=== PATIENT | female | born 1945 | race Caucasian/White ===

== ENCOUNTER 2024-12-09 17:40 | Inpatient (IN) ==
[2024-12-09] MEDS ORDERED: STAT IV Infusion **Titration per Protocol STA (21:17)
[2024-12-09] MEDS ORDERED: PHARMACY GLYCEMIC MGMT CONSULT PRN (21:17)
[2024-12-09] MEDS ORDERED: Patient's HEIGHT &/or WEIGHT Needed STA (21:24)
[2024-12-09] MEDS ORDERED: CARBOHYDRATES FOR HYPOGLYCEMIA PO PRN (21:30)
[2024-12-09] MEDS ORDERED: GLUCOSE 10 TAB/TUBE PO PRN (21:30)
[2024-12-09] MEDS ORDERED: GLUCAGON FOR INJ 1 MG VIAL SQ PRN (21:30)
[2024-12-09] MEDS ORDERED: DEXTROSE 50% 50 ML SYRINGE IV PRN (21:30)
[2024-12-09] MEDS ORDERED: GLUCOSE 40% GEL 15 GM TUBE PO PRN (21:30)
[2024-12-09] MEDS ORDERED: 0.2 MICRON FILTER SET 1 EACH IV ONE (21:37)
--- NOTE | 2024-12-09 21:45 | History & Physical Report ---
Date of Service December 09, 2024 Assessment & Plan (1) DKA (diabetic ketoacidoses): Plan: Assessment and plan below following review of patient history/pertinent normal/abnormal diagnostic test results. Hyperglycemic crisis Suboptimal control as of hemoglobin A1c of 8.7 drawn at [facility] New onset anemia secondary to GI bleed UGIB/LGIB combo History of Mora's esophagus/GERD Rule out C. difficile given recent antibiotic Rx for UTI New onset atrial flutter secondary to illness, patient currently NSR post IV amiodarone infusion initiation at [facility] Troponin elevation secondary to illness in the setting of kidney dysfunction hypertension, slightly elevated hyperlipidemia, on statin Rx valvular heart disease (moderate TR/mild MR, TTE 2023) hx PVD, carotid artery disease as per records hx CVA COPD, lung status at baseline hypothyroidism, euthyroid as of TSH done at [facility] mood disorder, stable dementia, patient mentating well past tobacco abuse ICU IVF, IV insulin protocol Pharmacy glycemic control consultation ordered by spaghetti machine operator service IV PPI for UGIB Appropriate to hold antiplatelet Rx for now Stool C. difficile Follow H&H, transfuse PRBC to obtain hemoglobin of at least 8 given history CVA Patient declines GI consultation for endoscopy for now. TTE, Cardiology consult re: paroxysmal atrial flutter, new onset Continue IV amiodarone for now PT OT eval once medically stable DVT prophylaxis. SCDs re: GI bleed DNR as per patient prior wishes. Patient requesting updates providers. Mr. Aaron Tian, contact #[phone]. Patient requested to bring patient's home medication list to hospital to facilitate medication reconciliation by staff. Text document was generated using [employer] voice recognition software. It may contain grammatical or spelling errors. Kindly contact undersigned for clarification of any documentation item in question. Admission and Anticipated Discharge Date Admission Date: December 09, 2024 History of Present Illness Chief Complaint: High sugars Primary Care Provider: Dr. Wood History obtained from patient, family, and records. 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 Last [facility] confinement 2015 for DKA, acute/subacute cerebellar CVA. Patient seen 2 weeks ago at [facility] urgent care [place] for UTI symptoms. Patient completed Bactrim course for E. coli UTI. Patient not feeling well the last 2 days. Nausea, hematemesis, diarrhea with blood without abdominal pain. No fever, no chills. Patient denies chest pain, SOB, headache symptoms Blood sugar 500s which is unusual for her. Compliant with home medications. Denies OTC NSAID intake. Patient fell at home from weakness. No head trauma. No LOC as per . EMS called to patient's home. Patient brought to [facility] ER for evaluation. Workup as follows WBC 14.8, hemoglobin 10.6, hematocrit 32.3, platelets 155 Serum sodium 131, potassium 4.8, chloride 95, CO2 13, BUN 25, creatinine 1.5, glucose 678, anion gap was 27.8 Venous pH 7.13, PCO2 36 Hemoglobin A1c 8.7 TSH 2.34 Troponin 26.1 -> 30.4 CT head and cervical spine imaging unremarkable. IV insulin initiated for DKA Patient later noted to be in rapid atrial flutter. IV amiodarone subsequently initiated. Patient transferred to [facility] for ICU services. Patient currently comfortable at ICU. Medical History as above 2012 EGD consistent with short segment Mora's,: 1. Small hiatal hernia. Few erosions in the antrum. Normal stomach, normal duodenum. 2018 colonoscopy showed sigmoid polyp, hemorrhoids. 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 Allergies Allergy/AdvReac Type Severity Reaction Status Date / Time MARTHA Inhibitors Allergy Unknown NUMB FROM Verified 12/10/24 08:04 KNEES DOWN Cipro Allergy Unknown UNKNOWN Verified 02/13/16 09:43 ciprofloxacin [Cipro] Allergy Unknown UNKNOWN Verified 12/10/24 08:04 Home Medications Medication Instructions Recorded Confirmed Type metoprolol tartrate 25 mg tablet 25 mg PO BID #0 tabs 06/18/13 12/10/24 History insulin glargine 100 unit/mL (3 12 unit subcut QAM ##0 03/03/14 12/10/24 History mL) subcutaneous pen (Lantus Solostar U-100 Insulin) aspirin 81 mg tablet,delayed 81 mg PO DAILY ##0 02/13/16 12/10/24 History release atorvastatin 40 mg tablet 40 mg PO HS 12/10/24 12/10/24 History ezetimibe 10 mg tablet 10 mg PO DAILY 12/10/24 12/10/24 History insulin aspart U-100 100 unit/mL 5 unit subcut TIDWMEAL 12/10/24 12/10/24 History (3 mL) subcutaneous pen (Novolog FlexPen U-100 Insulin aspart) insulin glargine 100 unit/mL (3 9 unit subcut QPM 12/10/24 12/10/24 History mL) subcutaneous pen (Lantus Solostar U-100 Insulin) losartan 25 mg tablet 25 mg PO DAILY 12/10/24 12/10/24 History melatonin 5 mg tablet 5 mg PO HS PRN Insomnia 12/10/24 12/10/24 History trazodone 100 mg tablet 200 mg PO HS 12/10/24 12/10/24 History Past Med/Surg History Problem List (Updated 12/01/17 @ 19:06 by [address]) Dehydration ALEXY (acute kidney injury) Atrial flutter Gastroparesis (Chronic) DKA (diabetic ketoacidoses) IDDM (insulin dependent diabetes mellitus) (Chronic) HLD (hyperlipidemia) (Chronic) HTN (hypertension) (Chronic) Gastroparesis (Chronic) Hx of tubal ligation (Chronic) H/O colonoscopy (Chronic) History of nasal surgery (Chronic) Social History Smoking Status: Former smoker Hx Alcohol Use: Yes Hx Substance Use: No Preferred Language: Nepalese Communication Ability: Effective Investigation Division Captain Required: No Beliefs That Will Affect Care: None Current Living Situation: Spouse Feels Safe at Home: Yes Safety Concerns: Feels Safe At This Time Assistive Devices: Cane Review of Systems Review of Systems: As per HPI, all other systems reviewed and negative Physical Exam Physical Exam: GENERAL: Comfortable, mild dysarthria (chronic as per patient), no respiratory distress SKIN: Pallor, warm HEENT: Pale palpebral conjunctivae, no ptosis, dry buccal mucosa NECK : Supple, no tenderness CHEST : Decreased breath sounds, no tenderness HEART : RRR, no obvious murmurs ABDOMEN: Some distention, nontender EXTREMITIES : No LE swelling/tenderness, palpable pulses, no other conspicuous deformities noted NEUROLOGIC : Coherent, no facial asymmetry, mild dysarthria, gait and stance not assessed Results & Data Results & Data Laboratory Results Laboratory Results POC Glucose 431 mg/dl (70-99) H* 12/09/24 21:22 Laboratory Results WBC 15.15 K/ul (4.8-10.8) H 12/09/24 21:46 RBC 3.08 M/uL (4.20-5.40) L 12/09/24 21:46 Hgb 9.0 g/dl (12.0-16.0) L 12/09/24 21:46 Hct 27.3 % (37.0-47.0) L 12/09/24 21:46 MCV 88.6 fL (80.0-100.0) 12/09/24 21:46 MCH 29.2 pg (25.0-34.0) 12/09/24 21:46 MCHC 33.0 g/dL (32.0-36.0) 12/09/24 21:46 RDW Std Deviation 46.1 fL (36.4-46.3) 12/09/24 21:46 RDW Coeff of Frieda 14.4 % (11.5-14.5) 12/09/24 21:46 Plt Count 142 K/uL (130-400) 12/09/24 21:46 MPV 11.6 fL (9.4-12.4) 12/09/24 21:46 Immature Gran % (Auto) 0.3 % 12/09/24 21:46 Neut % (Auto) 84.4 % 12/09/24 21:46 Lymph % (Auto) 8.1 % 12/09/24 21:46 [place] % (Auto) 7.1 % 12/09/24 21:46 Eos % (Auto) 0.0 % 12/09/24 21:46 Baso % (Auto) 0.1 % 12/09/24 21:46 Neut # (Auto) 12.78 K/uL (1.40-6.50) H 12/09/24 21:46 Lymph # (Auto) 1.22 K/uL (1.20-3.40) 12/09/24 21:46 [place] # (Auto) 1.08 K/uL (0.11-0.59) H 12/09/24 21:46 Eos # (Auto) 0.00 K/uL (0.00-0.50) 12/09/24 21:46 Baso # (Auto) 0.02 K/uL (0.00-0.20) 12/09/24 21:46 Immature Gran # (Auto) 0.05 K/uL (0.01-0.20) 12/09/24 21:46 VBG pH 7.29 (7.36-7.41) L 12/09/24 21:46 VBG pCO2 40 mmHg (38-50) 12/09/24 21:46 VBG pO2 32 mmHg 12/09/24 21:46 VBG HCO3 19 mmol/L 12/09/24 21:46 VBG O2 Saturation 60.1 % 12/09/24 21:46 VBG Base Excess -7.0 mEq/L 12/09/24 21:46 Sodium 134 mmol/L (136-145) L 12/09/24 21:46 Potassium 4.0 mmol/L (3.5-5.1) 12/09/24 21:46 Chloride 102 mmol/L (98-107) 12/09/24 21:46 Carbon Dioxide 19 mmol/L (21-32) L 12/09/24 21:46 Anion Gap 13 (3-11) H 12/09/24 21:46 BUN 28 mg/dl (6-23) H 12/09/24 21:46 Creatinine 1.47 mg/dl (0.6-1.2) H 12/09/24 21:46 Est Cr Clr Drug Dosing 28.6 ml/min 12/09/24 21:46 eGFR 35.87 12/09/24 21:46 BUN/Creatinine Ratio 19.0 (10-20) 12/09/24 21:46 Glucose 442 mg/dl (70-99(Fasting)) H* 12/09/24 21:46 POC Glucose 378 mg/dl (70-99) H* 12/09/24 23:28 Calcium 8.4 mg/dl (8.6-10.3) L 12/09/24 21:46 Phosphorus 3.0 mg/dl (2.5-4.9) 12/09/24 21:46 Magnesium 1.8 mg/dl (1.7-2.4) 12/09/24 21:46 Total Bilirubin 0.4 mg/dl (0.2-1.0) 12/09/24 21:46 AST 38 U/L (13-39) 12/09/24 21:46 ALT 29 U/L (7-52) 12/09/24 21:46 Alkaline Phosphatase 35 U/L (34-104) 12/09/24 21:46 Total Protein 6.1 gm/dl (6.0-8.3) 12/09/24 21:46 Albumin 3.4 gm/dl (3.4-5.0) 12/09/24 21:46 Globulin 2.7 gm/dl (2.5-4.0) 12/09/24 21:46 Albumin/Globulin Ratio 1.3 (0.9-2) 12/09/24 21:46 Procalcitonin 1.87 ng/ml (0-0.5) H 12/09/24 21:46 TSH 1.360 uIu/ml (0.300-4.500) 12/09/24 21:46 Nasal Screen MRSA (PCR) Negative (Negative) 12/09/24 Unknown Diagnostic Findings EKG as per my interpretation :Rate 90, NSR, LAD, LAFB, 1 AVB, nonspecific T abnormalities, low voltage Code Status & VTE Plan VTE Prophylaxis Plan VTE Prophylaxis will be ordered: Yes
[2024-12-09] MEDS: AMIODARONE 360MG / 200ML D5W IV ONE (21:53)
[2024-12-09] MEDS: PLASMA-LYTE A 1,000 ML IV SCH (21:54)
[2024-12-09] MEDS: DKA GOAL RANGE 150-250 mg/dl ONE (21:54)
[2024-12-09] MEDS: AMIODARONE / D5W 360 MG/200 ML BAG IV SCH (21:55)
[2024-12-09] MEDS: INSULIN REGULAR 250 UNITS in SODIUM CHLORIDE 0.9% 247.5 ML IV SCH (21:56)
[2024-12-09] MEDS: NovoLIN-R BOLUS FROM BAG IV ONE (21:57)
[2024-12-09 22:02] LABS: Base Excess VBG -7.0 mEq/L; HCO3 VBG 19 mmol/L; Oxygen Saturation VBG 60.1 %; PCO2 VBG 40 mmHg (38-50); PO2 VBG 32 mmHg; pH VBG 7.29 (7.36-7.41)
--- NOTE | 2024-12-09 22:14 | Critical Care Consultation ---
Date of Consultation December 09, 2024 Assessment & Plan (1) DKA (diabetic ketoacidoses): (2) IDDM (insulin dependent diabetes mellitus): (3) Gastroparesis: (4) HTN (hypertension): (5) HLD (hyperlipidemia): (6) Gastroparesis: (7) Atrial flutter: (8) ALEXY (acute kidney injury): (9) Dehydration: Plan Reason Critically Ill: 1. DKA. Brittle diabetic with recent UTI. 2. IDDMI 3. ALEXY on CKD 4. Dehydration 5. Atrial flutter, new onset 6. Prolonged QT interval 7. 1st degree AVB 8. Gastroparesis Neuro - [facility] ICU: Negative RASS GOAL 0 APAP PRN pain/fever Sleep hygiene Cardiac - Admit EKG with 1st degree AVB, prolonged QTc. Giving 2g Mg empirically MAP goal > 65mmHg TTE pending Continue amiodarone infusion Patient is a fall risk at home, will need to weigh risks vs. benefits of anticoagulation prior to discharge. I did discuss this briefly with patient's who states she's had some falls in the yard Continue home ASA, based on med rec patient is no longer taking clopidogrel Continue statin, Zetia, beta pierre. Hold ARB with ALEXY Hold Lasix Respiratory - No acute concerns HOB 30, aspiration precautions SpO2 goal > 92% IS/Flutter GI - H/o gastroparesis, Reglan currently c/i with prolonged QTc. Zofran sparingly PRN Diet: NPO except sips and chips SUP: N/A Bowel regimen: Start in AM RENAL/LYTES - Labs now Replete electrolytes as indicated Bladder scan and straight cath PRN Maintain net even to net negative ENDO - Continue DKA protocol insulin infusion Start KCl containing IVFs Transition to D5-containing fluids as appropriate Trend labs BG 140-180 per SCCM guidelines HEME - Consider therapeutic anticoagulation, risks vs. benefits given falls Did receive 1mg/kg Lovenox at OSH. Should be covered until midday tomorrow based on last dose. Defer to Dr. Daniels to full-dose AC ID - Recent UTI Rx Bactrim x7 days Repeat UA now No current indication for empiric antibiotics LINES/TUBES/DRAINS - PIV x2 DVT PROPHYLAXIS - TEDS/SCDs, AC per attending CODE STATUS - DNR/DNI as discussed with patient at bedside DISPOSITION - ICU pending clinical improvement, expect her to be stable for downgrade in AM I have personally spent 36 minutes of critical care time in the direct management of this patient. This is a life/limb threatening event. This includes time spent evaluating patient, direct bedside care, chart review, placing orders, interpretation of diagnostic studies, discussion with consultants, patient, and family members, as well as other required patient management activities. This time is exclusive of all separately billable procedures, and teaching time and separate from and in addition to any other critical care service time. Thank you for allowing us to participate in the care of this patient. Please refer to my attending physician's documentation for any further recommendations. Supervising Physician Co-Signing Physician Notes I have seen and evaluated the patient with the DANYEL. I agree with the documented findings and plan in addition to the following. History present illness: Patient is a 79-year-old female with a past medical history significant for diabetes mellitus type 2, insulin-dependent with history of previous DKA, gastroparesis history of cerebellar CVA with balance disturbances, hypertension, hyperlipidemia, recent UTI. The patient is admitted to our facility as a transfer from [facility] for evaluation of DKA and new onset atrial flutter. The patient had presented to the outside hospital with polydipsia, polyuria, nausea, vomiting and elevated blood glucose at home. Found to be in DKA with an anion gap of 27. At the outside hospital she received 3 L of normal saline and was started on insulin infusion. The patient was in atrial fibrillation and started on amiodarone IV and was given a dose of Lovenox. The patient was transferred to our facility and ICU was consulted for management of DKA and atrial fibrillation. The patient arrived overnight, she was hemodynamically stable with regular heart rate while amiodarone was infusing. Was in normal sinus rhythm. Blood glucose was still elevated, she remained on fluids and insulin infusion overnight. The patient's clinical condition and laboratories studies improved significantly. This morning she is feeling well, she is awake and alert. She cannot recall all the details of her medical history which she says is due to her previous stroke. She says that her is coming in at 11 this morning and he can answer more questions. She denies any abdominal pain or nausea this morning. She is thirsty and hungry. Anion gap is closed. Abdomen is flat, nontender and nondistended. She is resting comfortably on room air. Sinus rhythm with a rate of 78. Reason Critically Ill: Diabetic ketoacidosis Atrial fibrillation with RVR Acute kidney injury Mildly elevated procalcitonin without source of infection Neuro: History of cerebellar CVA with balance disturbance and memory disturbance Neurologic status seems at baseline today. No acute concerns. May have a history of intermittent atrial fibrillation that has just not been diagnosed yet. Need to determine the risk and benefit of anticoagulation for stroke prevention versus the risk of fall and bleed given her deficits from her previous stroke. Patient received 1 dose of Lovenox, we have held further dosing at this time. Cardiac: Atrial fibrillation with RVR She has normal sinus rhythm now on amiodarone infusion. She did receive 1 dose of Lovenox. The risk versus benefit of long-term anticoagulation needs to be explained in detail, she may have a history of intermittent A-fib given her previous CVA however she also has significant deficits from her old stroke and she has a high fall risk. On metoprolol and amiodarone. Respiratory: On room air, no acute concerns today. GI: History of gastroparesis No abdominal pain this morning. Good appetite. Wanting to take p.o. RENAL/LYTES: Acute kidney injury Anion gap metabolic acidosis with ketosis, DKA Anion gap is closed. Bicarb is normalized. Renal function is improving. Continue to monitor renal function with daily labs. Replace electrolytes as indicated. : Urinalysis without evidence of UTI. ENDO: Insulin-dependent type 2 diabetes with history of DKA, A1c 9%, poorly controlled Diabetic ketoacidosis Patient's anion gap is closed, bicarb is normalized. Patient is hungry and th irsty and denies any abdominal pain. Ready to be transition off the drip. Will need basal bolus and sliding scale insulin. Can stop dextrose and insulin infusions. Can give diabetic diet. Patient will need to see early childhood educator aide and possibly drafting clerk prior to discharge. HEME: Mild leukocytosis Mild anemia Reported hematemesis according to outside hospital H&P Received a dose of Lovenox, will hold further dosing at this time. No evidence of blood loss for us. ID: Mildly elevated procalcitonin UA is negative, no systemic complaints of infection. Feeding: Will start diabetic diet Fluids: Stopping dextrose and IV insulin, transitioning to basal bolus insulin Activity: Up with assist Thromboprophylaxis: Received 1 dose of Lovenox, need to discuss risks and benefits of long-term anticoagulation with patient and her . Ulcer prophylaxis: Pantoprazole Glycemic control: Pharmacy consult, basal bolus insulin and sliding scale insulin needed Antibiotics: None Plan: Patient is much improved today. We will be transitioning her off of the insulin infusion to basal bolus insulin. Will start diabetic diet. Patient has been in sinus rhythm for rest. Heart rate is well-controlled. Remains on beta-pierre and amiodarone. Received 1 dose of Lovenox which should cover her through most of the day, need to have a discussion with patient and caregiver about the risk and benefits of long-term anticoagulation. Patient is clinically much improved and is ready to leave the ICU. I have personally spent 45 minutes of critical care time in the direct management of this patient. This is a life/limb threatening event. This includes time spent evaluating patient, direct bedside care, chart review, placing orders, interpretation of diagnostic studies, discussion with consultants, patient, and family members, as well as other required patient management activities. This time is exclusive of all separately billable procedures, and teaching time and separate from and in addition to any other critical care service time. History of Present Illness Reason for Consultation: DKA Requesting Physician: Ingris Attending Physician: Dirk Amado DO History of Present Illness Mrs. Richa Tian is a pleasant 79YOF with a history of cerebellar CVA with balance disturbances, HTN/HLD, gastroparesis, IDDMI, recent UTI who was transferred from [facility] the evening of 12/09/2024 due to DKA and new- onset atrial flutter. Patient presented to OSH due to polydipsia, polyuria, n/v, and hyperglycemia. Found to be in severe DKA with AG 27. Received 3L NSS, started on insulin infusion. Due to atrial fibrillation the patient was started on amiodarone infusion and given 1mg/kg Lovenox. She was accepted for transfer by Dr. Amado of [facility] Hospitalist service. ICU is consulted for management. Patient seen on arrival to ICU 109. She is AAOx3. No current complaints. Hemodynamically stable. NSR at 88bpm with amiodarone infusing. Last BG 421, was receiving D51/2+20mEqKCl by [facility] team. This was stopped and patient transitioned to LR pending labs. ROS + nausea, lack of PO intake x1 day, polyuria, polydipsia, vomiting, dizziness. Otherwise negative including SOB, chest pain, diarrhea, palpitations, stroke-like symptoms, visual changes, hematemesis. Patient was recently treated for UTI with Bactrim BID, finished y . BG ranges between 60-200 at home. Refused glucometer in past. Allergies Allergy/AdvReac Type Severity Reaction Status Date / Time MARTHA Inhibitors Allergy Unknown NUMB FROM Verified 12/10/24 08:04 KNEES DOWN Cipro Allergy Unknown UNKNOWN Verified 02/13/16 09:43 ciprofloxacin [Cipro] Allergy Unknown UNKNOWN Verified 12/10/24 08:04 Home Medications Medication Instructions Recorded Confirmed Type metoprolol tartrate 25 mg tablet 25 mg PO BID #0 tabs 06/18/13 12/10/24 History insulin glargine 100 unit/mL (3 12 unit subcut QAM ##0 03/03/14 12/10/24 History mL) subcutaneous pen (Lantus Solostar U-100 Insulin) aspirin 81 mg tablet,delayed 81 mg PO DAILY ##0 02/13/16 12/10/24 History release atorvastatin 40 mg tablet 40 mg PO HS 12/10/24 12/10/24 History ezetimibe 10 mg tablet 10 mg PO DAILY 12/10/24 12/10/24 History insulin aspart U-100 100 unit/mL 5 unit subcut TIDWMEAL 12/10/24 12/10/24 History (3 mL) subcutaneous pen (Novolog FlexPen U-100 Insulin aspart) insulin glargine 100 unit/mL (3 9 unit subcut QPM 12/10/24 12/10/24 History mL) subcutaneous pen (Lantus Solostar U-100 Insulin) losartan 25 mg tablet 25 mg PO DAILY 12/10/24 12/10/24 History melatonin 5 mg tablet 5 mg PO HS PRN Insomnia 12/10/24 12/10/24 History trazodone 100 mg tablet 200 mg PO HS 12/10/24 12/10/24 History Patient History Social History Smoking Status: Former smoker Hx Alcohol Use: Yes Hx Substance Use: No Preferred Language: [place]guill[place] Communication Ability: Effective Inclined Railway Operator Required: No Beliefs That Will Affect Care: None Current Living Situation: Spouse Feels Safe at Home: Yes Safety Concerns: Feels Safe At This Time Assistive Devices: Cane Review of Systems Review of Systems: All systems reviewed & are unremarkable except as noted in Subjective Physical Exam Constitutional: well developed, well nourished, + frail appearing, cooperative and comfortable; no acute distress Eyes: PERRL, conjunctivae normal, anicteric sclerae Neck: trachea midline, no thyromegaly Respiratory: normal respiratory effort, lungs clear to auscultation Cardiovascular: RRR, no murmur, no edema Gastrointestinal (Abdomen): Inspection/Auscultation: abdomen normal to inspection and + hypoactive bowel sounds; abdomen not distended Percussio n/Palpation: abdomen soft; abdomen nontender, no guarding and abdomen not rigid Musculoskeletal: no cyanosis or clubbing, extremities motor strength 5/5 Skin: no rashes, warm and dry Neurologic: PERRL, EOMI, accommodation nl, no face palsy, no dysarthria Genitourinary: Deferred Results & Data Results & Data Vital Signs (Past 12 Hours) Reviewed Laboratory Results Reviewed Diagnostic Findings Reviewed Medications Administered See MAR Coding Level of Care Code 93664 CRITICAL CARE 1ST 30-74M Diagnoses DKA (diabetic ketoacidoses) E13.10 IDDM (insulin dependent diabetes mellitus) E11.9; Z79.4 Gastroparesis K31.84 HTN (hypertension) I10 HLD (hyperlipidemia) E78.5 Atrial flutter I48.92 ALEXY (acute kidney injury) N17.9 Dehydration E86.0 Time Spent (min) 36
[2024-12-09 22:28] LABS: Alanine Aminotransferase 29.0 U/L (7-52); Albumin Globulin Ratio 1.3 (0.9-2); Alkaline Phosphatase 35.0 U/L (34-104); Anion Gap 13.0 (3-11); Bilirubin,Total 0.4 mg/dl (0.2-1.0); Blood Urea Nitrogen 28.0 mg/dl (6-23); Calcium 8.4 mg/dl (8.6-10.3); Carbon Dioxide 19.0 mmol/L (21-32); Chloride 102.0 mmol/L (98-107); Creatinine Clr Calc Pharmacy 28.6 ml/min; Globulin 2.7 gm/dl (2.5-4.0); Glucose 442.0 mg/dl (70-99(Fasting)); Magnesium 1.8 mg/dl (1.7-2.4); Potassium 4.0 mmol/L (3.5-5.1); Sodium 134.0 mmol/L (136-145); Total Protein 6.1 gm/dl (6.0-8.3)
[2024-12-09 22:43] LABS: Thyroid Stimulating Hormone 1.36 uIu/ml (0.300-4.500)
[2024-12-09] MEDS: PENDING 1/2NSS+20mEq KCL IVF SCH (22:56)
[2024-12-09] MEDS: POTASSIUM CHLORIDE 40 MEQ in SODIUM CHLORIDE 0.45 % 1,000 ML IV SCH (23:07)
[2024-12-09] MEDS: MAGNESIUM SULFATE / D5W 1 GM/100 ML BAG IV SCH (23:16)
[2024-12-09] MEDS: POTASSIUM CHLORIDE / WTR 10 MEQ/100 ML PLCT IV SCH (23:21)
[2024-12-09 23:43] LABS: Hematocrit (blood only) 27.3 % (37.0-47.0); Hemoglobin 9.0 g/dl (12.0-16.0); Immature Granulocytes # (auto) 0.05 K/uL (0.01-0.20); Immature Granulocytes % (auto) 0.3 %; Mean Corpuscular Hemoglobin 29.2 pg (25.0-34.0); Mean Corpuscular Volume 88.6 fL (80.0-100.0); Platelet Count 142 K/uL (130-400); RDW Standard Deviation 46.1 fL (36.4-46.3); Red Blood Count 3.08 M/uL (4.20-5.40); White Blood Count 15.15 K/ul (4.8-10.8)
[2024-12-10] MEDS: PENDING D5 1/2NS+20mEq KCL IVF SCH (00:35)
[2024-12-10 00:44] LABS: Appearance Urine Clear (Clear); Bacteria Urine Automated None Seen (None Seen); Epithelial Cell Urine Auto 0-2 /hpf (0-2); Glucose Urine UA 3+ (Negative); RBC Urine Automated 0-2 /hpf (0-2); WBC Urine Automated 0-5 /hpf (0-5)
[2024-12-10 01:55] LABS: Hematocrit (blood only) 27.3 % (37.0-47.0); Hemoglobin 9.3 g/dl (12.0-16.0); Immature Granulocytes # (auto) 0.07 K/uL (0.01-0.20); Immature Granulocytes % (auto) 0.5 %; Mean Corpuscular Hemoglobin 29.6 pg (25.0-34.0); Mean Corpuscular Volume 86.9 fL (80.0-100.0); Platelet Count 130 K/uL (130-400); RDW Standard Deviation 45.5 fL (36.4-46.3); Red Blood Count 3.14 M/uL (4.20-5.40); White Blood Count 14.24 K/ul (4.8-10.8)
[2024-12-10 02:35] LABS: INR 1.1 (0.9-1.1); Prothrombin Time 11.7 Seconds (9.0-12.0)
[2024-12-10 02:41] LABS: Anion Gap 7.0 (3-11); Blood Urea Nitrogen 26.0 mg/dl (6-23); Calcium 8.4 mg/dl (8.6-10.3); Carbon Dioxide 23.0 mmol/L (21-32); Chloride 104.0 mmol/L (98-107); Creatinine Clr Calc Pharmacy 30.2 ml/min; Glucose 311.0 mg/dl (70-99(Fasting)); Magnesium 2.1 mg/dl (1.7-2.4); Potassium 4.4 mmol/L (3.5-5.1); Sodium 134.0 mmol/L (136-145)
[2024-12-10] MEDS ORDERED: SODIUM PHOSPHATE 3 MMOL/1 ML INFUSION IV STA (03:09)
[2024-12-10] MEDS: D5W AND 1/2NSS + 20MEQ KCL 20 MEQ/1,000 ML BAG IV SCH (03:24)
[2024-12-10] MEDS: SODIUM PHOSPHATE 15 MMOL in SODIUM CHLORIDE 0.9% 250 ML IV ONE (03:32)
[2024-12-10 06:19] LABS: Anion Gap 7.0 (3-11); Blood Urea Nitrogen 25.0 mg/dl (6-23); Calcium 8.2 mg/dl (8.6-10.3); Carbon Dioxide 23.0 mmol/L (21-32); Chloride 105.0 mmol/L (98-107); Creatinine Clr Calc Pharmacy 33.6 ml/min; Glucose 188.0 mg/dl (70-99(Fasting)); Magnesium 2.1 mg/dl (1.7-2.4); Potassium 4.4 mmol/L (3.5-5.1); Sodium 135.0 mmol/L (136-145)
[2024-12-10] MEDS: INSULIN ASPART PER UNIT CHARGE SC SCH ×2 (07:24→09:32)
[2024-12-10] MEDS: LANTUS PER UNIT CHARGE SC ONE (08:22)
[2024-12-10] MEDS: EZETIMIBE 10 MG TAB PO SCH (08:26)
[2024-12-10] MEDS: MULTIVITAMIN TAB PO SCH (08:26)
[2024-12-10] MEDS: ASPIRIN 81 MG ECTAB PO SCH (08:26)
[2024-12-10] MEDS: ASCORBIC ACID 500 MG TAB PO SCH (08:26)
[2024-12-10] MEDS: ATORVASTATIN 40 MG TAB PO SCH (08:26)
[2024-12-10] MEDS: METOPROLOL TARTRATE 25 MG TAB PO SCH (08:26)
[2024-12-10] MEDS: PANTOprazole 40 MG/10 ML SYR IV SCH (08:27)
[2024-12-10 08:42] LABS: Hemoglobin A1C 9.2 % (4.5-5.6)
[2024-12-10] MEDS ORDERED: ENOXAPARIN INJ 30 MG/0.3 ML SYR SQ SCH (09:00)
[2024-12-10] MEDS ORDERED: METOPROLOL TARTRATE 25 MG TAB PO SCH (09:00)
[2024-12-10] MEDS ORDERED: CLOPIDOGREL BISULFATE 75 MG TAB PO SCH (09:00)
--- NOTE | 2024-12-10 09:10 | Cardiology Consultation ---
Date of Consultation December 10, 2024 Assessment & Plan (1) Atrial flutter: (2) DKA (diabetic ketoacidoses): (3) HTN (hypertension): (4) Anemia: Plan Patient admitted to ICU upon transfer from outside hospital for DKA and new onset atrial flutter. Outside facility started patient on IV amiodarone and she converted to NSR/sinus bradycardia upon arrival. Atrial flutter -Currently NSR/Sinus bradycardia -She has been on IV amiodarone since last night upon arrival to [facility] -Stop IV amiodarone -Transition to oral amiodarone 200 mg BID -Normal LFT's and TSH on arrival -Anticoagulation risks/benefits discussed with patient and her . -She recently reported bloody BM upon admission. Hbg is 9. (last known hbg was 12.1 in July 2023) -She also has chronic gait instability/fall risk with her dementia -However her CHADSVASC score is 7 (age, sex, HTN, DM, prior stroke). -At this point, given her acute issues with anemia and possible GI bleed, would recommend avoiding anticoagulation at this time -Will try to maintain NSR with ongoing amiodarone. -Once anemia/Gi bleed is evaluated, could consider future anticoagulation. -Would also continue her home dose metoprolol tartrate 25 mg BID -Monitor electrolytes -echo with normal LVEF, no wall motion abnormalities. normal LA size. DKA -treatment per hospitalist Case discussed with Dr. Orosco I spent a total of 60 minutes on the date of service in preparation, delivery, and documentation of the care provided to this patient, excluding any time spent in the performance of separately billed services. Edie Young PA-C Department of Cardiology, [facility] This chart was completed in part utilizing Speech Voice Recognition Software. Grammatical errors, random word insertions, pronoun errors, and incomplete sentences are an occasional consequence of this system due to software limi tations, ambient noise, and hardware issues. Any formal questions or concerns about the content, text, or information contained within the body of this dictation should be directly addressed to the provider for clarification. Supervising Physician Co-Signing Physician Notes I have personally performed a history and physical examination on the patient. I have reviewed the advance practitioner's documentation, and I agree with, and take responsibility for the plan of care. 79-year-old female presents with diabetic ketoacidosis and reported paroxysmal atrial flutter from outside hospital. Treatment with IV amiodarone initiated prior to transfer. She has remained in sinus rhythm. No evidence of recurrent atrial flutter. History of cerebrovascular accident in 2017. Echocardiogram demonstrates preserved LV systolic function, normal left atrial size, moderate tricuspid regurgitation with borderline mild pulmonary hypertension. Patient does not appear to be a strong candidate for chronic /long-term anticoagulation. Reported bloody bowel movement on admission as well as chronic anemia. There also concerns regarding gait stability and frailty. Will avoid anticoagulation currently. Transition from IV amiodarone to oral amiodarone 200 mg twice daily in attempt to maintain rhythm control. Continue outpatient metoprolol tartrate although this may require adjustment pending ongoing rhythm assessment. Continue telemetry monitoring during hospitalization. Gerson Miller DO, [facility] I spent a total of 35 minutes on the date of service in preparation, delivery, and documentation of the care provided to this patient, excluding any time spent in the performance of separately billed services. History of Present Illness Reason for Consultation: Atrial flutter RVR Requesting Physician: Diamond Carter Attending Physician: Dr. Miller History of Present Illness Patient is an 79-year-old female admitted to [facility] upon transfer from [facility] for DKA and new onset atrial flutter RVR. [place] records not currently available to review. Apparently when patient arrived at their hospital, she was found to be in atrial flutter with rapid ventricular response. Duration Unknown She was started on IV amiodarone and converted to normal sinus rhythm by the time she arrived at [facility]. Patient is a poor historian. Seen in the ICU. at bedside but he is not the best historian either. Unsure if she was compliant with home meds. Cardiology consult requested to assist with management of atrial flutter RVR. Upon admission, patient reported bloody diarrhea at some point. Details unclear. There is discussion about a endoscopy given anemia. unaware of this bleeding issue. Patient now thinks it was "in her imagination". She denies chest pain or SOB. She admits to dizziness but reports this is a "daily complaint" and not new. No palpitations. She reports gait instability and intermittent falls. At time of consult, patient resting comfortably. Glucose levels improving and now off insulin pump. She voices no acute cardiac complaints or concerns. NSR on telemetry. No recent chest pain, SOB, dizziness. No palpitations. she was unaware of the atrial fib/flutter prior to going to the hospital. History includes: 1. dyslipidemia 2. Chart history of nonsustained ventricular tachycardia 3. 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 hypertension 5. DM type I 6. vascular dementia 7. Ambulatory dysfunction Allergies Allergy/AdvReac Type Severity Reaction Status Date / Time MARTHA Inhibitors Allergy Unknown NUMB FROM Verified 12/10/24 08:04 KNEES DOWN Cipro Allergy Unknown UNKNOWN Verified 02/13/16 09:43 ciprofloxacin [Cipro] Allergy Unknown UNKNOWN Verified 12/10/24 08:04 Home Medications Medication Instructions Recorded Confirmed Type metoprolol tartrate 25 mg tablet 25 mg PO BID #0 tabs 06/18/13 12/10/24 History insulin glargine 100 unit/mL (3 12 unit subcut QAM ##0 03/03/14 12/10/24 History mL) subcutaneous pen (Lantus Solostar U-100 Insulin) aspirin 81 mg tablet,delayed 81 mg PO DAILY ##0 02/13/16 12/10/24 History release atorvastatin 40 mg tablet 40 mg PO HS 12/10/24 12/10/24 History ezetimibe 10 mg tablet 10 mg PO DAILY 12/10/24 12/10/24 History insulin aspart U-100 100 unit/mL 5 unit subcut TIDWMEAL 12/10/24 12/10/24 History (3 mL) subcutaneous pen (Novolog FlexPen U-100 Insulin aspart) insulin glargine 100 unit/mL (3 9 unit subcut QPM 12/10/24 12/10/24 History mL) subcutaneous pen (Lantus Solostar U-100 Insulin) losartan 25 mg tablet 25 mg PO DAILY 12/10/24 12/10/24 History melatonin 5 mg tablet 5 mg PO HS PRN Insomnia 12/10/24 12/10/24 History trazodone 100 mg tablet 200 mg PO HS 12/10/24 12/10/24 History Patient History Social History Smoking Status: Former smoker Hx Alcohol Use: Yes Hx Substance Use: No Preferred Language: American Communication Ability: Effective 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 Tnt Required: No Beliefs That Will Affect Care: None Current Living Situation: Spouse Feels Safe at Home: Yes Safety Concerns: Feels Safe At This Time Assistive Devices: Cane Review of Systems Review of Systems: All systems reviewed & are unremarkable except as noted in HPI & below Physical Exam Constitutional: WD/WN, vitals as above + ill appearing and + thin Neck: trachea midline, no thyromegaly Respiratory: normal respiratory effort Auscultation: + diminished lung sounds; no crackles and no rales Cardiovascular: Rate/Rhythm: regular rate and regular rhythm Heart Sounds: no murmur Vessels: no JVD Extremities: no edema Gastrointestinal (Abdomen): normal bowel sounds, soft, nontender, no hepatosplenomegaly Neurologic: PERRL, EOMI, accommodation nl, no face palsy, no dysarthria Results & Data Vital Signs (Past 12 Hours) Vital Signs Temp Pulse Resp BP Pulse Ox O2 Del Method 12/10/24 07:45 76 16 97 12/10/24 07:33 76 16 12/10/24 07:18 79 17 97 12/10/24 07:03 79 13 98 12/10/24 07:00 139/64 12/10/24 06:54 81 20 97 12/10/24 06:30 77 16 95 Room Air 12/10/24 06:21 76 16 95 12/10/24 06:12 77 19 97 12/10/24 06:00 78 19 91 12/10/24 06:00 130/57 L 12/10/24 06:00 130/57 L 12/10/24 06:00 130/57 L 12/10/24 05:57 79 18 96 12/10/24 05:42 80 20 93 12/10/24 05:33 80 19 95 12/10/24 05:21 80 15 94 12/10/24 05:18 81 17 94 12/10/24 05:00 144/66 H 12/10/24 05:00 144/66 H 12/10/24 04:57 78 20 98 12/10/24 04:48 77 12 97 12/10/24 04:18 80 18 99 12/10/24 03:45 36.9 C 12/10/24 03:33 78 20 92 12/10/24 03:21 80 19 97 12/10/24 03:18 80 21 98 12/10/24 03:09 80 17 98 12/10/24 03:00 132/70 12/10/24 02:42 81 19 95 12/10/24 02:24 78 10 L 96 12/10/24 02:06 80 17 93 12/10/24 01:39 80 15 97 12/10/24 01:12 80 12 95 12/10/24 01:03 83 18 98 12/10/24 01:00 140/63 12/10/24 00:48 79 17 93 12/10/24 00:42 83 15 95 12/10/24 00:15 82 15 96 12/09/24 23:51 84 12 91 12/09/24 23:48 88 17 97 12/09/24 23:30 84 19 94 12/09/24 23:27 85 17 91 12/09/24 23:15 86 23 97 12/09/24 23:06 90 17 97 12/09/24 23:01 141/56 H 12/09/24 23:01 141/56 H 12/09/24 23:01 141/56 H 12/09/24 22:50 36.9 C 12/09/24 22:36 86 13 92 12/09/24 22:18 87 17 96 12/09/24 22:00 124/58 L 12/09/24 22:00 87 21 100 12/09/24 21:42 92 H 21 100 12/09/24 21:33 94 H 16 100 12/09/24 21:15 95 H 16 95 Laboratory Results Cardiac Enzymes 12/09/24 Range/Units 21:46 AST 38 (13-39) U/L Coagulation 12/10/24 Range/Units 01:34 PT 11.7 (9.0-12.0) Seconds CBC 12/09/24 12/10/24 Range/Units 21:46 01:34 WBC 15.15 H 14.24 H (4.8-10.8) K/ul RBC 3.08 L 3.14 L (4.20-5.40) M/uL Hgb 9.0 L 9.3 L (12.0-16.0) g/dl Hct 27.3 L 27.3 L (37.0-47.0) % Plt Count 142 130 (130-400) K/uL Neut # (Auto) 12.78 H 11.75 H (1.40-6.50) K/uL Lymph # (Auto) 1.22 1.61 (1.20-3.40) K/uL [place] # (Auto) 1.08 H 0.79 H (0.11-0.59) K/uL Eos # (Auto) 0.00 0.00 (0.00-0.50) K/uL Baso # (Auto) 0.02 0.02 (0.00-0.20) K/uL Comprehensive Metabolic Panel 12/09/24 12/10/24 12/10/24 Range/Units 21:46 01:34 05:28 Sodium 134 L 134 L 135 L (136-145) mmol/L Potassium 4.0 4.4 4.4 (3.5-5.1) mmol/L Chloride 102 104 105 (98-107) mmol/L Carbon Dioxide 19 L 23 23 (21-32) mmol/L BUN 28 H 26 H 25 H (6-23) mg/dl Creatinine 1.47 H 1.39 H 1.25 H (0.6-1.2) mg/dl Glucose 442 H* 311 H* 188 H (70-99(Fasting)) mg/dl Calcium 8.4 L 8.4 L 8.2 L (8.6-10.3) mg/dl AST 38 (13-39) U/L ALT 29 (7-52) U/L Alkaline Phosphatase 35 (34-104) U/L Total Protein 6.1 (6.0-8.3) gm/dl Albumin 3.4 (3.4-5.0) gm/dl 12/10/24 12/10/24 Range/Units 09:38 13:57 Sodium 132 L 132 L (136-145) mmol/L Potassium 4.6 4.8 (3.5-5.1) mmol/L Chloride 106 105 (98-107) mmol/L Carbon Dioxide 20 L 22 (21-32) mmol/L BUN 25 H 26 H (6-23) mg/dl Creatinine 1.34 H 1.60 H (0.6-1.2) mg/dl Glucose 143 H 226 H (70-99(Fasting)) mg/dl Calcium 8.1 L 8.2 L (8.6-10.3) mg/dl AST (13-39) U/L ALT (7-52) U/L Alkaline Phosphatase (34-104) U/L Total Protein (6.0-8.3) gm/dl Albumin (3.4-5.0) gm/dl Intake and Output 12/10/24 12/10/24 12/10/24 06:59 14:59 22:59 Intake Total 2030.743 / 2157.826 1250.828 / 1250.828 Output Total 200 / 200 550 / 550 Balance 1830.743 / 1957.826 700.828 / 700.828 Intake: IV 2029.743 / 2157.826 1050.828 / 1050.828 Amiodarone / D5w 360 mg In 200 158.65 / 158.65 ml @ 0.5 MG/MIN 16.667 mls/hr IV .Q12H YUSUF Rx#:[id number] D5w and 1/2Nss + 20Meq KCl 20 882.5 / 882.5 meq In 1,000 ml @ 150 mls/hr IV .Q6H40M YUSUF Rx#:[id number] Insulin Regular 250 units In 54.910 / 54.910 9.678 / 9.678 Sodium Chloride 0.9% 247.5 ml @ 3.4 UNITS/HR 3.4 mls/hr IV . Q24H YUSUF Rx#:[id number] Magnesium Sulfate / D5w 1 gm In 190.833 / 190.833 100 ml @ 50 mls/hr IV Q2H YUSUF Rx#:[id number] PANTOprazole 80 mg In Dextrose 120 / 120 5% 100 ml @ 480 mls/hr IV ONE STA Rx#:[id number] Potassium Chloride / Wtr 10 meq 390 / 390 In 100 ml @ 100 mls/hr IV Q1H YUSUF Rx#:[id number] Potassium Chloride 40 meq In 1020 / 1020 Sodium Chloride 0.45 % 1,000 ml @ 150 mls/hr IV .Q6H48M YUSUF Rx #:[id number] Sodium Phosphate 15 mmol In 255 / 255 Sodium Chloride 0.9% 250 ml @ 88 mls/hr IV ONE ONE Rx#: [id number] Oral 200 / 200 Output: Urine Amount (Catheter) 200 / 200 550 / 550 External 200 / 200 150 / 150 Straight 400 / 400 Other: Weight 69 kg Weight Measurement Method Built in [facility] Diagnostic Findings Telemetry reviewed: NSR and sinus bradycardia with HR ranging 55-80 bmp. No recurrent atrial fib/flutter since admission. EKG reviewed from admission: NSR with 1st degre AV block Low voltage QRS QT/QTc 400/486 ms Repeat EKG this morning 12/10/24: Sinus bradycardia at 58 bmp Low voltage QRS QT/QTc 472/463 ms Echocardiogram report reviewed dated 12/10/2024: Normal LV systolic function with ejection fraction 55 to 60%. No regional wall motion abnormalities noted. Left atrial size is normal. Moderate mitral annular calcification. Mild MR. Moderate TR. Estimated pulmonary pressure at 39 mmHg. Medications Administered Current Inpatient Medications Amiodarone HCl (Amiodarone 200 Mg Tab) 200 mg PO BIDM [facility] Stop: 01/09/25 16:59 Ascorbic Acid (Ascorbic Acid 500 Mg Tab) 500 mg PO QAM [facility] Stop: 01/09/25 08:59 Last Admin: 12/10/24 08:26 Dose: 500 mg Aspirin (Aspirin 81 Mg Ectab) 81 mg PO QAM [facility] Stop: 01/09/25 08:59 Last Admin: 12/10/24 08:26 Dose: 81 mg Atorvastatin Calcium (Atorvastatin 40 Mg Tab) 40 mg PO QAM [facility] Stop: 01/09/25 08:59 Last Admin: 12/10/24 08:26 Dose: 40 mg Dextrose (Dextrose 50% 50 Ml Syringe) 25 - 50 ml IV UD PRN; Protocol PRN Reason: Hypoglycemia Protocol Stop: 01/08/25 21:29 Ezetimibe (Ezetimibe 10 Mg Tab) 10 mg PO QAM [facility] Stop: 01/09/25 08:59 Last Admin: 12/10/24 08:26 Dose: 10 mg Enoxaparin Sodium (Enoxaparin Inj 30 Mg/0.3 Ml Syr) 30 mg SQ Q24H [facility] Stop: 01/09/25 08:59 Glucagon (Glucagon For Inj 1 Mg Vial) 1 mg SQ UD PRN; Protocol PRN Reason: Hypoglycemia Protocol Stop: 01/08/25 21:29 Glucose (Glucose 40% Gel 15 Gm Tube) 15 - 30 gm PO UD PRN; Protocol PRN Reason: Hypoglycemia Protocol Stop: 01/08/25 21:29 Glucose (Glucose 10 Tab/Tube) 4 - 8 tab PO UD PRN; Protocol PRN Reason: Hypoglycemia Protocol Stop: 01/08/25 21:29 Pantoprazole Sodium (Protonix) 40 mg in 10 mls @ 5 mls/min IV BID [facility] Stop: 01/09/25 08:59 Last Admin: 12/10/24 08:27 Dose: 5 mls/min Sodium Chloride (Nss) 1,000 mls @ 80 mls/hr IV .[id number] [facility] Stop: 12/10/24 23:59 Last Admin: 12/10/24 11:48 Dose: 80 mls/hr Insulin Aspart (Insulin Aspart Per Unit Charge) 0 units SC ACHS [facility] Stop: 01/09/25 09:29 Last Admin: 12/10/24 11:48 Dose: 3 units Insulin Glargine (Lantus Per Unit Charge) 0 units SC HS [facility]; Protocol Stop: 01/09/25 20:59 Metoprolol Tartrate (Metoprolol Tartrate 25 Mg Tab) 25 mg PO BID [facility] Stop: 01/09/25 08:59 Last Admin: 12/10/24 08:26 Dose: 25 mg Miscellaneous (Carbohydrates For Hypoglycemia ) 15 - 30 gm PO UD PRN PRN Reason: Hypoglycemia Treatment Stop: 01/08/25 21:29 Miscellaneous Information (Pharmacy Glycemic Mgmt Consult) 1 each N/A UD PRN PRN Reason: Consult Stop: 01/08/25 21:16 Multivitamins (Multivitamin Tab) 1 tab PO QAM [facility] Stop: 01/09/25 08:59 Last Admin: 12/10/24 08:26 Dose: 1 tab PG Care Time/CCT Total # of Minutes Spent Total Time Spent with Patient: Total time spent is greater than 50% in coordination of care (as documented) at patient's floor/unit and/or counseling patient: Coding Level of Care Code 92399 INT INP/OBS CARE 3/75MIN Diagnoses Atrial flutter I48.92 DKA (diabetic ketoacidoses) E13.10 HTN (hypertension) I10 Anemia D64.9
--- NOTE | 2024-12-10 09:40 | Pharmacy Report ---
Pharmacy Glycemic Short Note 2 - Date of Service December 10, 2024 - Glycemic Short BSG Results (Last 24 hours): 12/09/24 12/09/24 12/09/24 21:22 21:46 23:28 Glucose 442 H* POC Glucose 431 H* 378 H* 12/10/24 12/10/24 12/10/24 01:08 01:34 01:40 Glucose 311 H* POC Glucose 353 H* 303 H* 12/10/24 12/10/24 12/10/24 03:02 04:02 04:58 Glucose POC Glucose 245 H 227 H 210 H 12/10/24 12/10/24 12/10/24 05:28 05:32 07:16 Glucose 188 H POC Glucose 196 H 160 H 12/10/24 12/10/24 08:12 09:10 Glucose POC Glucose 132 H 142 H OUTPATIENT ANTIDIABETIC REGIMEN: * Lantus 10 units SQ AM, 9 units HS * NovoLog 5 units with meals * A1c 9.2% 12/10/24 ASSESSMENT: * 79 yo F admitted in DKA, new onset AFib. On Amiodarone drip. D51/2NS+20K @ 150cc/hr, anion gap closed, euglycemic. * Transition to SC insulin. Lantus 15 units x 1 now, overlapping with drip x1 hour, then drip shut off by itself. * Patient starting with breakfast, but only had a few bites of eggs, no carb coverage required. PLAN FOR INPATIENT GLYCEMIC CONTROL: * Basal insulin * Lantus 15 units SQ x 1 dose now, 5 units HS for BSG 180mg/dl or greater, further dosing tomorrow * Bolus insulin * NovoLog per scale ACHS or Q6hrs while NPO * Goal Range: Low 110 mg/dL - High 140 mg/dL * Correction Factor: 35 mg/dL/unit * Nutritional / Prandial insulin per carb ratio of 1 unit per 12 grams CHO consumed
[2024-12-10 10:59] LABS: Anion Gap 6.0 (3-11); Calcium 8.1 mg/dl (8.6-10.3); Carbon Dioxide 20.0 mmol/L (21-32); Chloride 106.0 mmol/L (98-107); Magnesium 2.1 mg/dl (1.7-2.4); Potassium 4.6 mmol/L (3.5-5.1); Sodium 132.0 mmol/L (136-145)
[2024-12-10 11:05] LABS: Blood Urea Nitrogen 25.0 mg/dl (6-23); Creatinine Clr Calc Pharmacy 31.3 ml/min; Glucose 143.0 mg/dl (70-99(Fasting))
--- NOTE | 2024-12-10 11:28 | Hospitalist Progress Note ---
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 Patient denied fever or chills or chest pain or shortness of breath or headache. Patient states she is compliant with her home medication and denies [id number] NSAID intake. Patient reported she fell at home from weakness, denied head trauma or loss of consciousness. Patient was initially taken to [facility] ER for evaluation and later transferred to [facility] for ICU services. Workup at [place] ER: WBC 14.8, sodium 131, anion gap 27.8, venous pH 7.13, PCO2 36, A1c of 8.7, TSH 2.34. CT head and cervical spine unremarkable. Patient was started on IV insulin for DKA and IV amiodarone for rapid A-flutter. Of note, patient admitted in 2016 for DKA and acute/subacute cerebellar CVA. Patient was recently treated about 2 weeks ago SITE AUDITOR at [facility] urgent care for UTI with Bactrim. Discussed with retail cosmetics sales beauty advisor 12/10, patient okay for downgrade. Patient is being managed for the following: Diabetic ketoacidosis History of T1DM Patient presents with nausea, vomiting, diarrhea. Denies abdominal pain. Rule out C. difficile given recent antibiotic Rx for UTI At present his anion gap and glucose levels were elevated, urine ketones positive. Nasal examination and oropharynx examination WNL. Status post DKA protocol, currently transition to subcu insulin. Appreciate glycemic pharmacy help. Anion gap closed, patient's diet has been started. A1c of 8.7, certified adapted physical educator consulted. Concern for new onset anemia, rule out GI bleed History of Mora's esophagus/GERD Baseline hemoglobin around 11-12 per outpatient chart review. Admitting hemoglobin of 9.0, MCV 86.9. There was mention of bloody vomitus and bloody diarrhea in the admitting note, p atient declines both to me on today Exam. Apparently pt declined GI eval at presentation. The hemoglobin drop could be due to dilutional secondary to IV fluid resuscitation that goes with DKA, but ro GI bleed - will get FOBT, continue PPI until then. Get iron studies Monitor HnH. Transfuse PRBC to maintain hemoglobin of at least 8 given history of CVA Acute kidney injury: Outpatient chart review with creatinine around 0.8, admitting creatinine of 1.47, likely prerenal in the setting of DKA. Status post IV fluid, improving. Avoid nephrotoxic/home losartan until renal functions better. New onset atrial flutter: iso to acute illness, patient currently NSR post IV amiodarone infusion initiation at [facility] ER. . tsh wnl. f/u echo. Cardio consult. c/w tele monitor. Likely demand ischemia: Troponin elevation (noted outside facility, see HnP note) secondary to illness in the setting of kidney dysfunction. Patient with no chest pain, follow echo, continue telemetry monitoring. Other chronic medical conditions: Continue with/resume home meds as when able. hypertension, Monitor, currently low normal. hyperlipidemia, on statin Rx valvular heart disease (moderate TR/mild MR, TTE 2023) hx PVD, carotid artery disease as per records hx CVA COPD, lung status at baseline hypothyroidism, euthyroid as of TSH done at [facility] mood disorder, stable dementia, patient mentating well, Delirium precautions past tobacco abuse PT OT eval once medically stable DVT prophylaxis. SCDs re: ?? GI bleed DNR /DNI Patient Mr. Aaron Tian, contact #[phone]. Text document was generated using [employer] voice recognition software. It may contain grammatical or spelling errors. Kindly contact undersigned for clarification of any documentation item in question. Admission and Anticipated Discharge Date Admission Date: December 09, 2024 Subjective Patient was seen and examined at bedside. Patient was lying in bed, on room air, NAD. Patient reports improvement in her nausea and vomiting, denies abdominal pain. Patient did eat very little. Pt feels weak and tired. Discussed with retail cosmetics sales beauty advisor, patient okay for downgrade. Physical Exam Physical Exam: GENERAL: Comfortable, mild dysarthria (chronic as per patient), no respiratory distress SKIN: Pallor, warm HEENT: Pale palpebral conjunctivae, no ptosis, moist buccal mucosa NECK : Supple, no tenderness CHEST : Decreased breath sounds, no tenderness HEART : RRR, no obvious murmurs ABDOMEN: No distention, nontender EXTREMITIES : No LE swelling/tenderness, palpable pulses, no other conspicuous deformities noted NEUROLOGIC : Coherent, no facial asymmetry, mild dysarthria, gait and stance not assessed Results & Data Results & Data Vital Signs (Past 12 Hours) Vital Signs Temp Pulse Resp BP Pulse Ox O2 Del Method 12/10/24 10:14 Room Air 12/10/24 10:01 84/51 L 12/10/24 10:00 58 L 20 95 Room Air 12/10/24 09:12 63 16 96 12/10/24 09:01 130/68 12/10/24 08:54 78 21 97 12/10/24 08:33 78 18 97 12/10/24 08:00 140/83 12/10/24 08:00 78 12/10/24 07:45 76 16 97 12/10/24 07:33 76 16 12/10/24 07:18 79 17 97 12/10/24 07:03 79 13 98 12/10/24 07:00 139/64 12/10/24 06:54 81 20 97 12/10/24 06:30 77 16 95 Room Air 12/10/24 06:21 76 16 95 12/10/24 06:12 77 19 97 12/10/24 06:00 78 19 91 12/10/24 06:00 130/57 L 12/10/24 06:00 130/57 L 12/10/24 06:00 130/57 L 12/10/24 05:57 79 18 96 12/10/24 05:42 80 20 93 12/10/24 05:33 80 19 95 12/10/24 05:21 80 15 94 12/10/24 05:18 81 17 94 12/10/24 05:00 144/66 H 12/10/24 05:00 144/66 H 12/10/24 04:57 78 20 98 12/10/24 04:48 77 12 97 12/10/24 04:18 80 18 99 12/10/24 03:45 36.9 C 12/10/24 03:33 78 20 92 12/10/24 03:21 80 19 97 12/10/24 03:18 80 21 98 12/10/24 03:09 80 17 98 12/10/24 03:00 132/70 12/10/24 02:42 81 19 95 12/10/24 02:24 78 10 L 96 12/10/24 02:06 80 17 93 12/10/24 01:39 80 15 97 12/10/24 01:12 80 12 95 12/10/24 01:03 83 18 98 12/10/24 01:00 140/63 12/10/24 00:48 79 17 93 12/10/24 00:42 83 15 95 12/10/24 00:15 82 15 96 12/09/24 23:51 84 12 91 12/09/24 23:48 88 17 97 12/09/24 23:30 84 19 94 12/09/24 23:27 85 17 91
[2024-12-10] MEDS: SODIUM CHLORIDE 0.9% 1,000 ML IV SCH (11:48)
[2024-12-10 12:26] LABS: Iron 31.0 mcg/dl (35-150); Total Iron Binding Cap Calc 224.0 mcg/dl (250-450); Transferrin 160.0 mg/dl (200-360); Transferrin (FE) Percent Satur 14.0 % (15-50)
--- NOTE | 2024-12-10 12:46 | Electrocardiogram Report ---
Test Reason : Blood Pressure : */* mmHG Vent. Rate : 89 BPM Atrial Rate : 89 BPM P-R Int : 254 ms QRS Dur : 86 ms QT Int : 400 ms P-R-T Axes : 64 -33 73 degrees QTcB Int : 486 ms Sinus rhythm with 1st degree A-V block Left axis deviation Low voltage QRS Nonspecific T wave abnormality QTcB >= 480 msec Abnormal ECG When compared with ECG of 14-Feb-2016 07:38, CO interval has increased Confirmed by Miguel A Mack ([id number]) on 12/10/2024 12:46:31 PM Referred By: Dirk Amado Confirmed By: Miguel A Mack
[2024-12-10 12:56] LABS: Folate (Folic Acid),Ser orPlas 8.97 ng/ml (>5.38)
[2024-12-10 12:57] LABS: Vitamin B12 1168.0 pg/ml (180-914)
--- NOTE | 2024-12-10 13:07 | Electrocardiogram Report ---
Test Reason : Blood Pressure : */* mmHG Vent. Rate : 58 BPM Atrial Rate : 58 BPM P-R Int : 172 ms QRS Dur : 86 ms QT Int : 472 ms P-R-T Axes : 40 -27 33 degrees QTcB Int : 463 ms Sinus bradycardia Low voltage QRS Borderline ECG When compared with ECG of 09-Dec-2024 22:22, NC interval has decreased Vent. rate has decreased by 31 bpm Nonspecific T wave abnormality no longer evident in Anterior leads Confirmed by Miguel A Mack ([id number]) on 12/10/2024 1:07:21 PM Referred By: Dirk Amado Confirmed By: Miguel A Mack
[2024-12-10 14:35] LABS: Anion Gap 5.0 (3-11); Blood Urea Nitrogen 26.0 mg/dl (6-23); Calcium 8.2 mg/dl (8.6-10.3); Carbon Dioxide 22.0 mmol/L (21-32); Chloride 105.0 mmol/L (98-107); Creatinine Clr Calc Pharmacy 26.3 ml/min; Glucose 226.0 mg/dl (70-99(Fasting)); Magnesium 2.0 mg/dl (1.7-2.4); Potassium 4.8 mmol/L (3.5-5.1); Sodium 132.0 mmol/L (136-145)
[2024-12-10] MEDS: AMIODARONE 200 MG TAB PO SCH (16:26)
[2024-12-10 18:24] LABS: Anion Gap 7.0 (3-11); Blood Urea Nitrogen 26.0 mg/dl (6-23); Calcium 8.5 mg/dl (8.6-10.3); Carbon Dioxide 21.0 mmol/L (21-32); Chloride 104.0 mmol/L (98-107); Creatinine Clr Calc Pharmacy 27.6 ml/min; Glucose 272.0 mg/dl (70-99(Fasting)); Magnesium 2.1 mg/dl (1.7-2.4); Potassium 4.9 mmol/L (3.5-5.1); Sodium 132.0 mmol/L (136-145)
[2024-12-10] MEDS: LANTUS PER UNIT CHARGE SC SCH (20:42)
[2024-12-11 06:27] LABS: Hematocrit (blood only) 28.5 % (37.0-47.0); Hemoglobin 9.8 g/dl (12.0-16.0); Immature Granulocytes # (auto) 0.04 K/uL (0.01-0.20); Immature Granulocytes % (auto) 0.4 %; Mean Corpuscular Hemoglobin 30.2 pg (25.0-34.0); Mean Corpuscular Volume 87.7 fL (80.0-100.0); Platelet Count 117 K/uL (130-400); RDW Standard Deviation 46.9 fL (36.4-46.3); Red Blood Count 3.25 M/uL (4.20-5.40); White Blood Count 8.95 K/ul (4.8-10.8)
[2024-12-11 07:10] LABS: INR 1.0 (0.9-1.1); Prothrombin Time 10.9 Seconds (9.0-12.0)
[2024-12-11 08:33] LABS: Anion Gap 5.0 (3-11); Blood Urea Nitrogen 22.0 mg/dl (6-23); Calcium 8.3 mg/dl (8.6-10.3); Carbon Dioxide 23.0 mmol/L (21-32); Chloride 105.0 mmol/L (98-107); Creatinine Clr Calc Pharmacy 35.9 ml/min; Glucose 295.0 mg/dl (70-99(Fasting)); Magnesium 2.1 mg/dl (1.7-2.4); Potassium 4.5 mmol/L (3.5-5.1); Sodium 133.0 mmol/L (136-145)
[2024-12-11] MEDS: LANTUS PER UNIT CHARGE SC SCH (08:49)
--- NOTE | 2024-12-11 09:49 | Cardiology Progress Note ---
Date of Service December 11, 2024 Assessment & Plan (1) Atrial flutter: (2) DKA (diabetic ketoacidoses): (3) HTN (hypertension): (4) Anemia: Plan Patient admitted to ICU upon transfer from outside hospital for DKA and new onset atrial flutter. Outside facility started patient on IV amiodarone and she converted to NSR/sinus bradycardia upon arrival. 12/11/2024: -patient shows clinical improvement from a cardiac perspective. No evidence of A-fib on telemetry. -Continue Lopressor 25mg PO BID, and Amiodarone 200mg PO BID -Ok to continue ASA 81mg if HgB remains stable. Patient has a elevated [id number] score of 7 s/t age, gender, HTN, DM and prior CVA, but due to chronic gain instability, high falls risk with dementia and reports of a recent bloody stool with low HgB on presentation, risk outweighs benefit of pursuing oral anticoagulation at this time. -may consider watchman outpatient; however, increased concerns for need for DAPT before and after procedure. This can be addressed OP. -Maintaining NSR on telemetry. -No acute findings on echocardiogram -No further cardiac workup is indicated during course of hospitalization -Recommend OP cardiology follow up in 4-6 weeks. -DKA per management of primary team. Case has been discussed with Dr. Francisco. Further recommendations regarding plan of care as per his assessment. I spent a total of 30 minutes on the date of service in preparation, delivery, documentation of the care provided to the patient excluding any time spent in the performance of separately billed services. FERCHO Grijalva [facility] Admission and Anticipated Discharge Date Admission Date: December 09, 2024 Supervising Physician Co-Signing Physician Notes Patient seen and examined. Past medical history, surgical history, social history and family history have been reviewed. The medical record and all the above studies have been reviewed. Case DW KARLEY including management. No evidence of Atrial flutter/ fib since admission on telemetry. correct and f/u electrolytes f/u renal function f/u H/H adjust anti-HTN meds keeping systolic BP between 100-140 mmHg avoid hypovolemia keep patient euvolemic Continue Lopressor 25mg PO BID Continue Amiodarone 200mg PO BID continue ASA 81mg Recommend GI evaluation for etiology of suspected recent GI bleed and anemia Patient is high risk for fall with dementia Risks outweighs benefits for chronic anticoagulation at this time. OP Zio May consider watchman as outpatient if indicated OP cardiology follow up in 4-6 weeks. Subjective 12/11/2024: Patient seen and examined in follow up today. Feeling well from a cardiac perspective, no acute concerns. Denies any chest pain, pressure or palpitations. Denies any changes in breathing, no near syncope or syncope, Denies any rios bleeding Labs, vitals, diagnostics, telemetry and documentation reviewed. Telemetry reviewed showing SB/SR rates 50-60's Review of Systems Review of Systems: All systems reviewed & are unremarkable except as noted in HPI & below Physical Exam Constitutional: well developed and well nourished; no acute distress and not ill appearing Neck: normal visual inspection and trachea midline Respiratory: normal respiratory effort; no respiratory distress, no labored breathing and no cough Auscultation: lungs clear to auscultation bilaterally Cardiovascular: Rate/Rhythm: regular rate, regular rhythm and + bradycardic Heart Sounds: normal S1 and normal S2; no murmur Vessels: dorsalis pedis pulses present; no JVD Extremities: no edema Skin: no rashes, warm and dry Psychiatric: A+Ox3, euthymic affect delay in responses s/t prior CVA Results & Data Vital Signs (Past 12 Hours) Vital Signs Temp Pulse Resp BP Pulse Ox O2 Del Method 12/11/24 02:47 36.4 C L 64 16 172/77 H 95 Room Air 12/10/24 22:13 36.8 C 59 L 16 170/79 H 96 Room Air Laboratory Results Coagulation 12/11/24 Range/Units 05:19 PT 10.9 (9.0-12.0) Seconds CBC 12/11/24 Range/Units 05:19 WBC 8.95 (4.8-10.8) K/ul RBC 3.25 L (4.20-5.40) M/uL Hgb 9.8 L (12.0-16.0) g/dl Hct 28.5 L (37.0-47.0) % Plt Count 117 L (130-400) K/uL Neut # (Auto) 6.52 H (1.40-6.50) K/uL Lymph # (Auto) 1.84 (1.20-3.40) K/uL [place] # (Auto) 0.49 (0.11-0.59) K/uL Eos # (Auto) 0.04 (0.00-0.50) K/uL Baso # (Auto) 0.02 (0.00-0.20) K/uL Comprehensive Metabolic Panel 12/10/24 12/10/24 12/11/24 Range/Units 13:57 17:27 05:18 Sodium 132 L 132 L 133 L (136-145) mmol/L Potassium 4.8 4.9 4.5 (3.5-5.1) mmol/L Chloride 105 104 105 (98-107) mmol/L Carbon Dioxide 22 21 23 (21-32) mmol/L BUN 26 H 26 H 22 (6-23) mg/dl Creatinine 1.60 H 1.52 H 1.17 D (0.6-1.2) mg/dl Glucose 226 H 272 H 295 H (70-99(Fasting)) mg/dl Calcium 8.2 L 8.5 L 8.3 L (8.6-10.3) mg/dl Intake and Output 12/10/24 12/11/24 12/11/24 22:59 06:59 14:59 Intake Total 135.827 / 2386.655 1000 / 2386.655 Balance 135.827 / 2355.503 7557 / 1836.655 Intake: IV 135.827 / 2186.655 1000 / 2186.655 Amiodarone / D5w 360 mg In 200 135.827 / 294.477 ml @ 0.5 MG/MIN 16.667 mls/hr IV .Q12H YUSUF Rx#:[id number] Sodium Chloride 0.9% 1,000 ml @ 1000 / 1000 80 mls/hr IV .[id number] Rx#: [id number] Other: Weight 70.1 kg Weight Measurement Method Built in [facility] Care Time/CCT Total # of Minutes Spent Total Time Spent with Patient: Total time spent is greater than 50% in coordination of care (as documented) at patient's floor/unit and/or counseling patient: Coding [place] [address] SUB INP/OBS CARE 3/50MIN Patient Type Established Diagnoses Atrial flutter I48.92 DKA (diabetic ketoacidoses) E13.10 HTN (hypertension) I10 Anemia D64.9 Time Spent (min) 50
--- NOTE | 2024-12-11 09:54 | Pharmacy Report ---
Pharmacy Glycemic Short Note 2 - Date of Service December 11, 2024 - Glycemic Short BSG Results (Last 24 hours): 12/10/24 12/10/24 12/10/24 09:38 10:21 11:25 Glucose 143 H POC Glucose 132 H 145 H 12/10/24 12/10/24 12/10/24 13:57 16:16 17:27 Glucose 226 H 272 H POC Glucose 114 H 12/10/24 12/11/24 12/11/24 20:31 05:18 07:22 Glucose 295 H POC Glucose 129 H 318 H* 12/11/24 07:25 Glucose POC Glucose 292 H OUTPATIENT ANTIDIABETIC REGIMEN: * Lantus 10 units SC AM + 9 units SC HS * NovoLog SC 5 units with meals * A1c 9.2% 12/10/24 ASSESSMENT: 12/11: * Richa's BSGs were well controlled off the insulin drip yesterday: 188-816-710-129 mg/dL. Received 15 units basal + 5 units bolus. * Fasting BSG this AM was elevated at 292 mg/dL. Unsure if patient snacked prior to this check. Will continue with AM basal dose but increase scaled basal dose at bedtime. * No change to Novolog at this time. Tolerating a T1DM diet. 12/10: * 79 yo F admitted in DKA, new onset AFib. On Amiodarone drip. D51/2NS+20K @ 150cc/hr, anion gap closed, euglycemic. * Transition to SC insulin. Lantus 15 units x 1 now, overlapping with drip x1 hour, then drip shut off by itself. * Patient starting with breakfast, but only had a few bites of eggs, no carb coverage required. PLAN FOR INPATIENT GLYCEMIC CONTROL: * Basal insulin * Lantus 15 units SC daily * Lantus 5-10 units SC HS (see eMAR for more details) * Bolus insulin * NovoLog per scale ACHS or Q6hrs while NPO * Goal Range: Low 110 mg/dL - High 140 mg/dL * Correction Factor: 35 mg/dL/unit * Nutritional / Prandial insulin per carb ratio of 1 unit per 12 grams CHO consumed
--- NOTE | 2024-12-11 13:42 | Hospitalist Progress Note ---
Date of Service December 11, 2024 Assessment & Plan (1) DKA (diabetic ketoacidoses): Plan: 79 yo F w/ PMH of HTN, HLD, PVD, CVA, COPD, DM1, hypothyroidism, GERD, Mora's esophagus, gastroparesis, skin cancer of the lip s/p surgery, mood disorder, dementia, ambulatory dysfunction, past tobacco abuse Presents with complaint of not feeling well for the last 2 days SKIN DIVER associated with nausea, vomiting [patient states that it might be colored vomitus from eating pizza rather than blood], diarrhea. Patient denied fever or chills or chest pain or shortness of breath or headache. Patient states she is compliant with her home medication and denies [id number] NSAID intake. Patient reported she fell at home from weakness, denied head trauma or loss of consciousness. Patient was initially taken to [facility] for evaluation and later transferred to [facility] for ICU services. Workup at [facility]: WBC 14.8, sodium 131, anion gap 27.8, venous pH 7.13, PCO2 36, A1c of 8.7, TSH 2.34. CT head and cervical spine unremarkable. Patient was started on IV insulin for DKA and IV amiodarone for rapid A-flutter. Of note, patient admitted in 2016 for DKA and acute/subacute cerebellar CVA. Patient was recently treated about 2 weeks ago SKIN DIVER at [facility] urgent care for UTI with Bactrim. Patient is being managed for the following: Diabetic ketoacidosis History of T1DM Patient presents with nausea, vomiting, diarrhea. Denies abdominal pain. Rule out C. difficile given recent antibiotic Rx for UTI At presentation anion gap and glucose levels were elevated, urine ketones positive. Nasal examination and oropharynx examination WNL. Status post DKA protocol, now SSI insulin. Appreciate glycemic pharmacy help. Pt tolerating diet, no N/V/abd pain. A1c of 8.7, community educator consulted. she is going to need the following prescriptions at [place]: 1.) Ketone Urine Test Strips- use with any nausea/vomiting or BG > 250. (50 each) 2.) OneTouch Delica Lancets 33 gauge- to check 3x/day. Insurance requires brand name (OneTouch Delica) and frequency of use (3x/day) be indicated on the prescription for coverage. (100/30 days). Concern for new onset anemia, rule out GI bleed, likely contributed by dilutional component as well. History of Mora's esophagus/GERD Baseline hemoglobin around 11-12 per outpatient chart review. Admitting hemoglobin of 9.0, MCV 86.9. There was mention of bloody vomitus and bloody diarrhea in the admitting note, patient declined both to me. Apparently pt declined GI eval at presentation. The hemoglobin drop could be due to dilutional secondary to IV fluid resuscitation that goes with DKA, but ro GI bleed - will get FOBT, continue PPI until then. Get iron studies - Iron def noted, b12 and folate wnl. start iron supplement once fobt is obtained. Monitor HnH. Transfuse PRBC to maintain hemoglobin of at least 8 given history of CVA Acute kidney injury: Outpatient chart review with creatinine around 0.8, admitting creatinine of 1.47, likely prerenal in the setting of DKA. Status post IV fluid, improving. Avoid nephrotoxic/home losartan until renal functions better. New onset atrial flutter: iso to acute illness, patient currently NSR post IV amiodarone infusion initiation at [facility]. Echo with EF of 55 to 60%, no regional wall motion abnormality. tsh wnl. f/u echo. Cardio consult - On p.o. amiodarone now, may consider Watchman device as an outpatient, follow-up with cardiology in 4 to 6 weeks, no anticoagulation due to high risks of fall. Likely demand ischemia: Troponin elevation (noted outside facility, see HnP note) secondary to illness in the setting of kidney dysfunction. Patient with no chest pain, echo as above, continue telemetry monitoring. Other chronic medical conditions: Continue with/resume home meds as when able. hypertension, Monitor, currently low normal. hyperlipidemia, on statin Rx valvular heart disease (moderate TR/mild MR, TTE 2023) hx PVD, carotid artery disease as per records hx CVA COPD, lung status at baseline hypothyroidism, euthyroid as of TSH done at [facility] mood disorder, stable dementia, patient mentating well, Delirium precautions past tobacco abuse PT OT , cm to assist w/ dc plan DVT prophylaxis. SCDs re: ?? GI bleed DNR /DNI Patient Mr. Aaron Tian, contact #[phone]. Text document was generated using [employer] voice recognition software. It may contain grammatical or spelling errors. Kindly contact undersigned for clarification of any documentation item in question. Admission and Anticipated Discharge Date Admission Date: December 09, 2024 Subjective Patient was seen and examined at bedside. Patient was lying in bed, on room air, NAD. Patient denies nausea and vomiting, abdominal pain. Patient reports eating better, no BM so far. will add bowel regimen. Physical Exam Physical Exam: GENERAL: Comfortable, mild dysarthria (chronic as per patient), no respiratory distress SKIN: Pallor, warm HEENT: Pale palpebral conjunctivae, no ptosis, moist buccal mucosa NECK : Supple, no tenderness CHEST : Decreased breath sounds, no tenderness HEART : RRR, no obvious murmurs ABDOMEN: No distention, nontender EXTREMITIES : No LE swelling/tenderness, palpable pulses, no other conspicuous deformities noted NEUROLOGIC : Coherent, no facial asymmetry, mild dysarthria, gait and stance not assessed Results & Data Results & Data Vital Signs (Past 12 Hours) Vital Signs Temp Pulse Pulse Resp BP Pulse Ox O2 Del Method 12/11/24 10:50 36.5 C 111 H 18 168/82 H 96 Room Air 12/11/24 08:00 68 12/11/24 02:47 36.4 C L 64 16 172/77 H 95 Room Air
[2024-12-11] MEDS: POLYETHYLENE (MIRALAX) 17 GM PACK PO SCH (14:01)
[2024-12-11] MEDS: DOCUSATE SODIUM 100 MG CAP PO SCH (14:01)
[2024-12-11] MEDS: LOSARTAN POTASSIUM 25 MG TAB PO SCH (18:26)
[2024-12-12] MEDS ORDERED: PROMETHAZINE 6.25 MG/50.25 ML BAG IV PRN (05:35)
[2024-12-12 06:03] LABS: Hematocrit (blood only) 34.2 % (37.0-47.0); Hemoglobin 11.6 g/dl (12.0-16.0); Immature Granulocytes # (auto) 0.02 K/uL (0.01-0.20); Immature Granulocytes % (auto) 0.3 %; Mean Corpuscular Hemoglobin 28.9 pg (25.0-34.0); Mean Corpuscular Volume 85.1 fL (80.0-100.0); Platelet Count 144 K/uL (130-400); RDW Standard Deviation 44.8 fL (36.4-46.3); Red Blood Count 4.02 M/uL (4.20-5.40); White Blood Count 7.13 K/ul (4.8-10.8)
[2024-12-12 06:20] LABS: Anion Gap 7.0 (3-11); Blood Urea Nitrogen 13.0 mg/dl (6-23); Calcium 8.8 mg/dl (8.6-10.3); Carbon Dioxide 26.0 mmol/L (21-32); Chloride 100.0 mmol/L (98-107); Creatinine Clr Calc Pharmacy 44.7 ml/min; Glucose 220.0 mg/dl (70-99(Fasting)); Magnesium 1.9 mg/dl (1.7-2.4); Potassium 4.1 mmol/L (3.5-5.1); Sodium 133.0 mmol/L (136-145)
[2024-12-12] MEDS: PROMETHAZINE 6.25 MG/50.25 ML BAG IV STA (06:31)
[2024-12-12 06:35] LABS: INR 1.0 (0.9-1.1); Prothrombin Time 10.8 Seconds (9.0-12.0)
--- NOTE | 2024-12-12 09:13 | Pharmacy Report ---
Pharmacy Glycemic Short Note 2 - Date of Service December 12, 2024 - Glycemic Short BSG Results (Last 24 hours): 12/11/24 12/11/24 12/11/24 11:32 16:15 20:42 Glucose POC Glucose 263 H 140 H 260 H 12/12/24 12/12/24 05:31 07:26 Glucose 220 H POC Glucose 212 H OUTPATIENT ANTIDIABETIC REGIMEN: * Lantus 10 units SC AM + 9 units SC HS * NovoLog SC 5 units with meals * A1c 9.2% 12/10/24 ASSESSMENT: 12/12: * Patient received 53 units of insulin yesterday, 25 of which were basal. BSGs were: [phone] mg/dL. * Fasting BSG this AM was 212 mg/dL, improved but still above goal. Will increase basal HS scale this evening. * Tolerating a T1DM diet. Will tighten Novolog parameters this morning as well to target BSGs less than 180 mg/dL. 12/11: * Richa's BSGs were well controlled off the insulin drip yesterday: 170-555-139-129 mg/dL. Received 15 units basal + 5 units bolus. * Fasting BSG this AM was elevated at 292 mg/dL. Unsure if patient snacked prior to this check. Will continue with AM basal dose but increase scaled basal dose at bedtime. * No change to Novolog at this time. Tolerating a T1DM diet. 12/10: * 79 yo F admitted in DKA, new onset AFib. On Amiodarone drip. D51/2NS+20K @ 150cc/hr, anion gap closed, euglycemic. * Transition to SC insulin. Lantus 15 units x 1 now, overlapping with drip x1 hour, then drip shut off by itself. * Patient starting with breakfast, but only had a few bites of eggs, no carb coverage required. PLAN FOR INPATIENT GLYCEMIC CONTROL: * Basal insulin * Lantus 15 units SC daily * Lantus 10-15 units SC HS (see eMAR for more details) * Bolus insulin * NovoLog per scale ACHS or Q6hrs while NPO * Goal Range: Low 110 mg/dL - High 140 mg/dL * Correction Factor: 20 mg/dL/unit * Nutritional / Prandial insulin per carb ratio of 1 unit per 7 grams CHO consumed
[2024-12-12] MEDS: POT PHOSPHATE MONOBASIC W/ SOD TAB PO SCH (09:47)
--- NOTE | 2024-12-12 12:57 | Discharge Summary ---
Date of Service December 12, 2024 Admission HPI Per Admitting Provider History obtained from patient, family, and records. 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 Last [facility] confinement 2015 for DKA, acute/subacute cerebellar CVA. Patient seen 2 weeks ago at [facility] for UTI symptoms. Patient completed Bactrim course for E. coli UTI. Patient not feeling well the last 2 days. Nausea, hematemesis, diarrhea with blood without abdominal pain. No fever, no chills. Patient denies chest pain, SOB, headache symptoms Blood sugar 500s which is unusual for her. Compliant with home medications. Denies OTC NSAID intake. Patient fell at home from weakness. No head trauma. No LOC as per . EMS called to patient's home. Patient brought to [facility] ER for evaluation. Workup as follows WBC 14.8, hemoglobin 10.6, hematocrit 32.3, platelets 155 Serum sodium 131, potassium 4.8, chloride 95, CO2 13, BUN 25, creatinine 1.5, glucose 678, anion gap was 27.8 Venous pH 7.13, PCO2 36 Hemoglobin A1c 8.7 TSH 2.34 Troponin 26.1 -> 30.4 CT head and cervical spine imaging unremarkable. IV insulin initiated for DKA Patient later noted to be in rapid atrial flutter. IV amiodarone subsequently initiated. Patient transferred to [facility] for ICU services. Patient currently comfortable at ICU. Medical History as above 2012 EGD consistent with short segment Mora's,: 1. Small hiatal hernia. Few erosions in the antrum. Normal stomach, normal duodenum. 2018 colonoscopy showed sigmoid polyp, hemorrhoids. 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 Admission Exam Per Admitting Provider GENERAL: Comfortable, mild dysarthria (chronic as per patient), no respiratory distress SKIN: Pallor, warm HEENT: Pale palpebral conjunctivae, no ptosis, dry buccal mucosa NECK : Supple, no tenderness CHEST : Decreased breath sounds, no tenderness HEART : RRR, no obvious murmurs ABDOMEN: Some distention, nontender EXTREMITIES : No LE swelling/tenderness, palpable pulses, no other conspicuous deformities noted NEUROLOGIC : Coherent, no facial asymmetry, mild dysarthria, gait and stance not assessed Principal Diagnosis Diabetic ketoacidosis History of T1DM Concern for new onset anemia, likely dilutional, improved. Discharge Exam GENERAL: Comfortable, mild dysarthria (chronic as per patient), no respiratory distress SKIN: Pallor, warm HEENT: Pale palpebral conjunctivae, no ptosis, moist buccal mucosa NECK : Supple, no tenderness CHEST : Decreased breath sounds, no tenderness HEART : RRR, no obvious murmurs ABDOMEN: No distention, nontender EXTREMITIES : No LE swelling/tenderness, palpable pulses, no other conspicuous deformities noted NEUROLOGIC : Coherent, no facial asymmetry, mild dysarthria, gait and stance not assessed Discharge Data Allergies Allergy/AdvReac Type Severity Reaction Status Date / Time MARTHA Inhibitors Allergy Unknown NUMB FROM Verified 12/10/24 08:04 KNEES DOWN Cipro Allergy Unknown UNKNOWN Verified 02/13/16 09:43 ciprofloxacin [Cipro] Allergy Unknown UNKNOWN Verified 12/10/24 08:04 Consultations 12/09/24 21:12 Consult Panel Machine Operator Routine 12/09/24 23:03 Consult Cardiology Routine Hospital Course (1) DKA (diabetic ketoacidoses): 79 yo F w/ PMH of HTN, HLD, PVD, CVA, COPD, DM1, hypothyroidism, GERD, Mora's esophagus, gastroparesis, skin cancer of the lip s/p surgery, mood disorder, dementia, ambulatory dysfunction, past tobacco abuse Presents with complaint of not feeling well for the last 2 days WOOD GRAINER associated with nausea, vomiting [patient states that it might be colored vomitus from eating pizza rather than blood], diarrhea. Patient denied fever or chills or chest pain or shortness of breath or headache. Patient states she is compliant with her home medication and denies [id number] NSAID intake. Patient reported she fell at home from weakness, denied head trauma or loss of consciousness. Patient was initially taken to [facility] ER for evaluation and later transferred to [facility] for ICU services. Workup at [facility]: WBC 14.8, sodium 131, anion gap 27.8, venous pH 7.13, PCO2 36, A1c of 8.7, TSH 2.34. CT head and cervical spine unremarkable. Patient was started on IV insulin for DKA and IV amiodarone for rapid A-flutter. Of note, patient admitted in 2016 for DKA and acute/subacute cerebellar CVA. Patient was recently treated about 2 weeks ago WOOD GRAINER at [facility] urgent care for UTI with Bactrim. Patient was managed for the following: Diabetic ketoacidosis History of T1DM Patient presents with nausea, vomiting, diarrhea. Denies abdominal pain. Rule out C. difficile given recent antibiotic Rx for UTI At presentation anion gap and glucose levels were elevated, urine ketones positive. Nasal examination and oropharynx examination WNL. Status post DKA protocol, now SSI insulin. Appreciate glycemic pharmacy help. Pt tolerating diet, no N/V/abd pain. A1c of 8.7, lacquer mixer consulted. Insulin dose adjusted: :Lantus 15 units BID + Novolog 5 units with meals + CF:20 for BG > 160 she is going to need the following prescriptions at DC: 1.) Ketone Urine Test Strips- use with any nausea/vomiting or BG > 250. (50 each) 2.) OneTouch Delica Lancets 33 gauge- to check 3x/day. Insurance requires brand name (OneTouch Delica) and frequency of use (3x/day) be indicated on the prescription for coverage. (100/30 days). above prescribed to pharmacy Concern for new onset anemia, rule out GI bleed, likely contributed by dilutional component as well. History of Mora's esophagus/GERD Baseline hemoglobin around 11-12 per outpatient chart review. Admitting hemoglobin of 9.0, MCV 86.9. There was mention of bloody vomitus and bloody diarrhea in the admitting note, patient declined both to me. Apparently pt declined GI eval at presentation. No evidence of further nausea or vomiting while in hospital. Hemoglobin resolved back to baseline. Likely due to dilutional component in the setting of aggressive fluid resuscitation for DKA. Will discontinue PPI. Continue with iron supplement and folate supplement upon discharge. Repeat iron level and vitamin B12/folate level in 2 to 3 months time upon discharge. Acute kidney injury: Outpatient chart review with creatinine around 0.8, admitting creatinine of 1.47, likely prerenal in the setting of DKA. Status post IV fluid, resolved. Avoid nephrotoxic/home losartan until renal functions better. New onset atrial flutter: iso to acute illness, patient currently NSR post IV amiodarone infusion initiation at [facility] ER. Echo with EF of 55 to 60%, no regional wall motion abnormality. tsh wnl. f/u echo. Cardio consult - On p.o. amiodarone now, may consider Watchma n device as an outpatient, follow-up with cardiology in 4 to 6 weeks, no anticoagulation due to high risks of fall. Likely demand ischemia: Troponin elevation (noted outside facility, see HnP note) secondary to illness in the setting of kidney dysfunction. Patient with no chest pain, echo as above, continue telemetry monitoring. Other chronic medical conditions: Continue with/resume home meds as when able. hypertension, Monitor, currently low normal. hyperlipidemia, on statin Rx valvular heart disease (moderate TR/mild MR, TTE 2023) hx PVD, carotid artery disease as per records hx CVA COPD, lung status at baseline hypothyroidism, euthyroid as of TSH done at [facility] mood disorder, stable dementia, patient mentating well, Delirium precautions past tobacco abuse PT OT , cm to assist w/ dc plan DVT prophylaxis. SCDs re: ?? GI bleed DNR /DNI Patient Mr. Aaron Tian, contact #[phone]. Patient is being discharged home with home health with following instructions at the point of discharge: Follow-up with your primary care physician within a week time and likely you will need labs CBC/CMP/magnesium/phosphorus. You were admitted for diabetic ketoacidosis, continue to follow-up with diabetic clinic upon discharge. Your insulin dose has been adjusted. You were noted to have low iron level while in hospital, you will be discharged on iron supplement. You will need repeat iron levels done in about 2 to 3 months time, coordinate with your PCP office to set up the test. You were noted to have new onset atrial flutter, cardiology evaluated you, you have been started on amiodarone. Follow-up with cardiology in 4 weeks time upon discharge. You will likely benefit from outpatient Zio patch monitoring, coordinate with your cardiology office to set up the test. Take your medications as prescribed. Please make sure that you are able to get your medications today by calling your pharmacy before you leave the hospital so that your treatment continuity is not broken. Text document was generated using [employer] recognition software. It may contain grammatical or spelling errors. Kindly contact undersigned for clarification of any documentation item in question. Home Health Attestation I certify that this patient is under my care and that I, or a physicians assistant media planner working with me, had a face to-face encounter that meets the home health abwc-ie-qvte encounter requirements with this patient. The encounter with the patient was in whole, or in part, for the following medical condition, which is the primary reason for home health care (list medical condition): I certify that, based on my findings, the following services are medically necessary home health services: My clinical findings support the need for the above services because: Further, I certify that my clinical findings support that this patient is homebound (i.e. absences from home require considerable and taxing effort and are for medical reasons or adventist services or infrequently or of short duration when for other reasons) because: Certification for Home Health Services: Based on the above findings, I certify that this patient is confined to the home and needs intermittent nursing home care, physical therapy and/or speech therapy or continues to need occupational therapy. The patient is under my care, and I have initiated the establishment of the plan of care. This patient will be followed by a physician who will periodically review the plan of care. Total Time Total Time Spent Total Time Spent (In Minutes): 45 Discharge Plan Discharge Items Patient Disposition: Home - Home Health Services Reason For Visit: DKA Discharge Diagnosis: Diabetic ketoacidosis History of T1DM Concern for new onset anemia, likely dilutional, improved. Activity: Resume your previous activity Non-emergency contact: Primary Care Provider Call non-emergency contact if: you have any medication questions Follow-up/Referrals: Randell Wood MD [Primary Care Provider] - (Date & Time 12/15/2024 9:00 AM Provider: Randell Wood MD [facility] ) Diet: Carb Count or DM1 Addtl Attending Provider Instructions: Follow-up with your primary care physician within a week time and likely you will need labs CBC/CMP/magnesium/phosphorus. You were admitted for diabetic ketoacidosis, continue to follow-up with diabetic clinic upon discharge. Your insulin dose has been adjusted. You were noted to have low iron level while in hospital, you will be discharged on iron supplement. You will need repeat iron levels done in about 2 to 3 months time, coordinate with your PCP office to set up the test. You were noted to have new onset atrial flutter, cardiology evaluated you, you have been started on amiodarone. Follow-up with cardiology in 4 weeks time upon discharge. You will likely benefit from outpatient Zio patch monitoring, coordinate with your cardiology office to set up the test. Take your medications as prescribed. Please make sure that you are able to get your medications today by calling your pharmacy before you leave the hospital so that your treatment continuity is not broken. Pending Studies at Discharge: No Stand-Alone Forms: My [facility] [employer], Smoking Cessation Medications and DC Order Prescriptions: New amiodarone 200 mg Tablet 200 mg PO BIDM Qty: 60 0RF multivitamin with folic acid [Daily-Amita (with folic acid)] 400 mcg Tablet 1 tab PO QAM Qty: 30 0RF ferrous fumarate 324 mg (106 mg iron) tablet 324 mg PO DAILY Qty: 30 0RF folic acid 1 mg tablet 1 mg PO DAILY Qty: 30 0RF (DME) Ketone Urine Test Strip See Rx Instructions .Route Qty: 50 0RF Rx Instructions: use with any nausea, vomiting or blood glucose > 250 (DME) lancets [OneTouch Delica Plus Lancet] 33 gauge misc See Rx Instructions .Route Qty: 100 0RF Rx Instructions: three times a day Continued metoprolol tartrate 25 mg Tablet 25 mg PO BID Qty: 0 aspirin 81 mg Tablet,Delayed Release (Dr/Ec) 81 mg PO DAILY Qty: 0 losartan 25 mg Tablet 25 mg PO DAILY ezetimibe 10 mg Tablet 10 mg PO DAILY atorvastatin 40 mg Tablet 40 mg PO HS trazodone 100 mg Tablet 200 mg PO HS melatonin 5 mg Tablet 5 mg PO HS PRN (Reason: Insomnia) Changed insulin glargine [Lantus Solostar U-100 Insulin] 100 unit/mL (3 mL) Insulin Pen 15 unit subcut QAM Qty: 0 0RF insulin glargine [Lantus Solostar U-100 Insulin] 100 unit/mL (3 mL) Insulin Pen 15 unit SUBCUT QPM Qty: 0 0RF insulin aspart U-100 [Novolog FlexPen U-100 Insulin] 100 unit/mL (3 mL) Insulin Pen 5 unit subcut TIDWMEAL Qty: 0 0RF Rx Instructions: Novolog 5 units with meals + Correction Factor of 20 for Blood glucose > 160 Discharge Orders: Discharge Order (Routine); Ordered 12/12/24 Ordered By: Jimi May Admission Data Admit Date/Time: 12/09/24 21:12 Attending Provider: Jimi May Admit Provider: Dirk Amado Primary Care Provider: Randell Wood Other Providers: Randell Wood; Maggie Camacho; Loli Rebolledo; Nadeem Orsoco; Mekhi Velásquez; Gerson Miller; Adrian Delgado; Don Pandya; Ida Martines; Edie Young; Becka Cisneros; Lady Mayo; Loli Rivera; Bertrand Egan; Didier Mcknight; Lucia Cui; Silva Garza; Gisselle Rivera; Bronwyn Samuels; Moshe Maldonado; Destiny Wiggins; Cielo Dumont; Dusty Fields; Raheel Francisco N
[2024-12-12 13:02] VITALS: PULSE 71; RESP 20; TEMP 97.3; O2SAT 95
[2024-12-12 13:26] VITALS: BP 207/91
== END 2024-12-12 15:55 | disposition home or self-care (01) | DRG 638 ==
LOC: 1E 21:02 → 2S 12-10 14:24